=== PATIENT | female | born 1995 | race Caucasian/White ===

== ENCOUNTER → 2017-12-30 | Outpatient (CLI) | payer BC, OTHER | LOC: GMAM 16:49 | PROVIDERS: ATTEND Family Medicine | DX: M25.50 Pain in unspecified joint (principal); R53.83 Other fatigue; R23.3 Spontaneous ecchymoses ==

== ENCOUNTER → 2018-01-19 | Outpatient (CLI) | payer BC | LOC: GMAM 17:04 | PROVIDERS: ATTEND Family Medicine | DX: R31.21 Asymptomatic microscopic hematuria (principal); Z83.49 Family history of other endocrine, nutritional and metabolic diseases ==

== ENCOUNTER → 2018-03-02 | Outpatient (CLI) | payer BC | LOC: GMAM 15:14 | PROVIDERS: ATTEND Family Medicine | DX: E34.9 Endocrine disorder, unspecified (principal) ==

== ENCOUNTER 2018-03-25 05:51 | Day surgery (SDC) | payer BC ==
[2018-03-25] MEDS ORDERED: SODIUM CHL 0.9% 100ML MINI-BAG 100 ML IVPB ONE (07:35)
[2018-03-25] MEDS ORDERED: LACTATED RINGERS 1,000 ML ONE (07:35)
[2018-03-25] MEDS ORDERED: ceFAZolin SODIUM 1 GM VIAL ONE (07:36)
[2018-03-25] MEDS ORDERED: LACTATED RINGERS 1,000 ML BAG IV ONE (09:25)
[2018-03-25] MEDS ORDERED: LIDOCAINE 1% 10 ML VIAL INJ ONE (10:00)
[2018-03-25] MEDS ORDERED: PROPOFOL 200 MG/20 ML VIAL IV ONE (10:00)
[2018-03-25] MEDS ORDERED: DEXAMETHASONE INJ 10 MG/ML VIAL IV ONE (10:00)
[2018-03-25] MEDS ORDERED: LIDOCAINE 1% 50 ML VIAL INJ ONE (10:20)
[2018-03-25] MEDS ORDERED: SODIUM BICARBONATE VIAL 50 MEQ/50 ML VIAL ONE (10:20)
[2018-03-25] MEDS ORDERED: SODIUM CHLORIDE 0.9% 50 ML VIAL ONE (10:21)
[2018-03-25] MEDS ORDERED: fentaNYL CITRATE INJ 50 MCG/ML AMP ONE (10:21)
[2018-03-25] MEDS ORDERED: HEPARIN SODIUM 100 U/ML 5 ML SYG IV ONE (10:21)
[2018-03-25] MEDS ORDERED: MIDAZOLAM INJ 2 MG/2 ML VIAL ONE (10:21)
[2018-03-25] MEDS ORDERED: ELECTROLYTE-A 1,000 ML IVS ONE (10:53)
--- NOTE | 2018-03-25 13:10 | OP ---
DATE OF PROCEDURE: 03/25/18 PREOPERATIVE DIAGNOSIS: 1. Poor peripheral vascular access with postural orthostatic tachycardia syndrome (POTS). POSTOPERATIVE DIAGNOSIS: 1. Poor peripheral vascular access with postural orthostatic tachycardia syndrome (POTS). PROCEDURE: 1. Insertion of right subclavian venous access port. SURGEON: Jalen Balderas MD WAREHOUSER: None. ANESTHESIA: Local anesthesia with 1% lidocaine with bicarb and IV sedation by Anesthesia. INDICATION: The patient is a 23-year-old female who has lost approximately 30 pounds and requires weekly IV rehydration and replenishment of her electrolytes. She has relatively poor peripheral vascular access after the many sticks. She is brought to the Surgical Suite today for insertion of right subclavian venous access port under local anesthesia with IV sedation using fluoroscopy after the risks, benefits and alternatives to the procedure were discussed and accepted. FINDINGS: The subclavian vein was accessed with a single stick. However, it took four different attempts to get the guidewire to go down into the superior vena cava instead of crossing into the left subclavian vein. The final fluoroscopy showed the catheter in good position. PROCEDURE: After the patient was brought to the Surgical Suite and placed in supine position, she was prepped and draped in the usual sterile manner. After IV sedation was performed and a surgical time-out was taken, a 22-gauge needle was used to infiltrate the skin in the infraclavicular area on the right. It was advanced under the clavicle and venous blood was easily accessed. The 22- gauge needle was removed and an 18-gauge thin wall needle was introduced in the same direction. Again, blood was easily aspirated. The syringe was removed and the guidewire was easily passed to approximately 30 cm. A towel was placed over the field and fluoroscopy was used to identify cross into the left subclavian vein. It was backed up under fluoroscopic evaluation. We were unable to get it to pass posteriorly into the superior vena cava. Eventually, it was removed. We re-stuck her and finally on the fourth stick, each one passing the wire easily, we finally got the wire to pass inferiorly. When this was done, a stab wound was made over the guidewire and local infiltration of anesthesia was obtained and a port pocket was formed, first with a sharp knife after local anesthesia and then electrocautery and blunt dissection. At this point, the catheter was tunneled from the port pocket to the insertion site. The port was introduced into the port pocket, sutured in place with two 3-0 Prolene simple sutures. When this was done, the subcutaneous tissue in the port pocket was closed and reapproximated with interrupted 3-0 Vicryl sutures. When this was done, the catheter was measured and cut appropriately. The dilator introducer was then introduced without difficulty. The dilator and guidewire were removed. The catheter which had been cleaned with heparinized saline was then introduced without difficulty. The introducer was removed. Pressure was held over the insertion site and the port was accessed with a Mcfadden needle. It aspirated easily. It was then flushed with heparinized saline followed by heplock and de-accessed. At this point, another sterile towel was placed over the field and the fluoroscopy unit was used to identify the catheter in good position. At this point, the incisions were closed with interrupted 4-0 Vicryl subcuticular sutures, benzoin and Steri-Strips. Sterile pressure dressing was applied. The patient was taken to the Recovery Room in stable condition. Estimated blood loss was approximately 25 mL. All sponge, needle and instrument counts were correct. #[id number] [facility]
--- NOTE | 2018-03-25 13:35 | RAD ---
EXAM DESCRIPTION: Chest,1 View CLINICAL HISTORY: post op port COMPARISON: August 11, 2012 IMPRESSION: Single AP portable upright view of the chest shows cardiac silhouette and pulmonary vasculature to be within normal limits. Lungs are normally aerated and clear. No obvious pleural effusion or pneumothorax is seen. Interval placement of right subclavian Mediport with tip in the distal superior vena cava and no evidence of pneumothorax. Electronically signed by: Clint Smith MD 03/25/2018 1:34 PM CDT
[2018-03-25 14:09] VITALS: BP 105/72; TEMP 97.2; O2SAT 97
== END 2018-03-25 13:15 | disposition home or self-care (01) ==
LOC: AMB 05:51
PROVIDERS: ATTEND Surgery
DX: R00.0 Tachycardia, unspecified (principal); D64.9 Anemia, unspecified; G47.419 Narcolepsy without cataplexy; K21.9 Gastro-esophageal reflux disease without esophagitis; Z79.899 Other long term (current) drug therapy
CPT/HCPCS: 00532; 36415; 36561; 71045; 76000; 81001; 81025; 85025; A4216; C1788; J0690; J1100; J1642; J2250; J3010; J3490; J7050; J7120

== ENCOUNTER → 2018-04-19 | Outpatient (CLI) | payer BC | LOC: GMAM 16:51 | PROVIDERS: ATTEND Family Medicine | DX: G47.419 Narcolepsy without cataplexy (principal); R53.82 Chronic fatigue, unspecified ==

== ENCOUNTER → 2018-06-27 | Outpatient (CLI) | payer BC | LOC: GMAM 10:34 | PROVIDERS: ATTEND Family Medicine | DX: R50.9 Fever, unspecified (principal) ==

== ENCOUNTER → 2018-08-17 | Outpatient (CLI) | payer BC ==
--- NOTE | 2018-08-18 09:54 | MRI ---
EXAM DESCRIPTION: Cervical Spine: MRI. CLINICAL HISTORY: 23 years Female CERVICAL SPINAL STENOSIS COMPARISON: Radiographs of the right shoulder , 08/15/2018. MRI scan of the thoracic spine 02/02/2018. TECHNIQUE: Multiplanar, high-field MRI, multiple sequences, non-contrast Cervical spine. FINDINGS: C4-5: Small uncinate spur on the left only. Normal signal in the disc with disc space preserved. Canal and neural foramina are patent. Facet joints negative. C5-6: Bilateral small uncinate spurs. Minimal left neural foraminal narrowing. Normal signal in the disc and disc space preserved. Canal and right neural foraminal are patent. Facet joints negative. C6-7: Posterior flavum ligaments with minimal hypertrophy. Normal signal in the disc with disc space preserved. Facet joints are unremarkable. Canal and neural foramina are patent. Normal signal in the remaining discs with no bulging. Disc spaces preserved. Canal and neural foramina are patent. Facet joints are unremarkable Spinal alignment anatomic. No cord compression or cord edema. Atlantoaxial joint shows minimal hypertrophy of the transverse ligament anterior to the ventral cord. Base of the cerebellar tonsils is at the level of the foramen magnum. Paravertebral soft tissues negative.. Vertebral bodies are not compressed at any level. Normal marrow signal in the remaining vertebral bodies and the posterior elements. IMPRESSION: 1. Minimal findings as described at 3 levels of the cervical spine but no significant disc bulging or desiccation; no canal or neural foraminal stenosis. 2. No acute bony abnormalities. No cord compression or edema. Electronically signed by: Danny Guy MD 08/18/2018 9:51 AM MEDICAL OFFICE RECEPTIONIST
== END ==
LOC: MRI 10:09
PROVIDERS: ATTEND Family Medicine
DX: M25.511 Pain in right shoulder (principal); M48.02 Spinal stenosis, cervical region

== ENCOUNTER 2018-10-06 19:21 | Emergency (ER) | payer BC ==
--- NOTE | 2018-10-06 20:43 | CT ---
PROCEDURE: CT Head CLINICAL HISTORY: 23 years Female headache TECHNIQUE: Contiguous axial CT images obtained through the brain without IV contrast. This CT exam was performed according to our departmental dose-optimization program, which includes one or more of the following dose reduction techniques: automated exposure control, adjustment of the mA and/or kV according to patient size, and/or use of iterative reconstruction technique. COMPARISON: No prior exams provided for comparison. FINDINGS: There is no intracranial hemorrhage, extraaxial collection, or acute transcortical infarction. The ventricles are normal in size and contour without mass-effect or midline shift. Osseous structures are normal. The paranasal sinuses and mastoid air cells are clear. IMPRESSION: No acute intracranial abnormalities. Electronically signed by: Ludivina Santana MD 10/06/2018 8:40 PM CDT
[2018-10-06 21:43] VITALS: O2SAT 99
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
[2018-10-06 22:50] VITALS: TEMP 98.8
[2018-10-06] MEDS ORDERED: ONDANSETRON INJ 4 MG/2 ML VIAL IV ONE (23:28)
[2018-10-06] MEDS ORDERED: MORPHINE SULFATE INJ 10 MG/ML VIAL IV ONE (23:28)
[2018-10-07] MEDS ORDERED: MORPHINE SULFATE INJ 10 MG/ML VIAL IV ONE (00:01)
[2018-10-07] MEDS ORDERED: HYDROCOD/APAP 5/325 (ER DISP) #3 TAB PO ONE (00:01)
[2018-10-07] MEDS ORDERED: IBUPROFEN 200 MG TAB PO ONE (00:01)
[2018-10-07 00:55] VITALS: BP 108/72
== END 2018-10-07 00:15 | disposition home or self-care (01) ==
LOC: ER 19:21
DX: G44.89 Other headache syndrome (principal); M43.6 Torticollis; R09.81 Nasal congestion; Z87.891 Personal history of nicotine dependence; Z79.899 Other long term (current) drug therapy
CPT/HCPCS: 36415; 70450; 80053; 82945; 84157; 85025; 85379; 87070; 89051; J2270

== ENCOUNTER → 2018-10-24 | Outpatient (CLI) | payer BC ==
--- NOTE | 2018-10-24 19:40 | US ---
EXAM: US Duplex Right Lower Extremity Veins CLINICAL HISTORY: 23 years old and is Female; RT CALF PAIN M79.661 TECHNIQUE: Real-time duplex ultrasound scan of the right lower extremity veins integrating B-mode two-dimensional vascular structure, Doppler spectral analysis, color flow Doppler imaging and compression. COMPARISON: No relevant prior studies available. FINDINGS: Limitations: None. Deep veins: Unremarkable. No DVT in the visualized common femoral, femoral, proximal deep femoral or popliteal veins. The veins demonstrate normal color flow, are normally compressible, with normal phasic flow and/or augmentation response. Superficial veins: Unremarkable. No thrombus in the visualized great saphenous vein. Soft tissues: No abnormality noted. No popliteal cyst. IMPRESSION: No deep venous stenosis of the right lower extremity. Electronically signed by: Ana Lancaster MD 10/24/2018 7:38 PM CDT
== END ==
LOC: US 18:57
PROVIDERS: ATTEND Nurse Practitioner Family
DX: M79.661 Pain in right lower leg (principal)

== ENCOUNTER 2018-10-26 08:41 | Emergency (ER) | payer BC, OTHER ==
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
[2018-10-26] MEDS: IBUPROFEN 200 MG TAB PO ONE (09:05)
[2018-10-26 09:47] VITALS: BP 104/73; TEMP 98.5; O2SAT 100
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
== END 2018-10-26 09:48 | disposition home or self-care (01) ==
LOC: ER 08:41
DX: S16.1XXA Strain of muscle, fascia and tendon at neck level, initial encounter (principal); M25.561 Pain in right knee; Z87.891 Personal history of nicotine dependence; Z79.899 Other long term (current) drug therapy; V49.88XA Car occupant (driver) (passenger) injured in other specified transport accidents, initial encounter; Y92.410 Unspecified street and highway as the place of occurrence of the external cause
CPT/HCPCS: 72050; 73560; L0120

== ENCOUNTER 2019-01-04 16:04 | Emergency (ER) | payer BC ==
[2019-01-04] MEDS ORDERED: POTASSIUM CHLORIDE ELIXIR 20 MEQ/15 ML UD PO ONE (17:21)
--- NOTE | 2019-01-04 18:25 | ED.PDOC ---
History of Present Illness - General Chief Complaint: General Stated Complaint: numbness all over Time Seen by Provider: 01/04/19 16:27 Source: patient Exam Limitations: no limitations - History of Present Illness Initial Comments: the patient is a 44-year-old female presenting to the emergency room secondary to increased frequency of herseizure activity. 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 She had 3 yesterday. She is currently on a medication regimen increased with her neurologist from [facility]. She is alert and oriented. She is pleasant and cooperative. No evidence of any obvious injury. No fever. She does have a history of mild hypokalemia. Timing/Duration: 24 hours Severity: mild Improving Factors: nothing Worsening Factors: nothing Associated Symptoms: denies symptoms Allergies/Adverse Reactions: Allergies NO KNOWN ALLERGY Allergy (Verified 10/26/18 08:57) Home Medications: Ambulatory Orders Adderall Xr 30 mg 30 mg PO DAILY 03/24/18 Amitriptyline HCl [Amitriptyline Hydrochlori] 50 mg PO BEDTIME 03/24/18 Estazolam 2 mg PO BEDTIME 03/24/18 Gabapentin 300 mg PO TID 01/04/19 Lamotrigine [Lamictal] 50 mg PO DAILY 01/04/19 Levetiracetam [Keppra] 500 mg PO BID 01/04/19 Review of Systems - Review of Systems Constitutional: States: no symptoms reported EENTM: States: no symptoms reported Respiratory: States: no symptoms reported Cardiology: States: no symptoms reported Gastrointestinal/Abdominal: States: no symptoms reported Genitourinary: States: no symptoms reported Musculoskeletal: States: no symptoms reported Skin: States: no symptoms reported Neurological: States: see HPI Endocrine: States: no symptoms reported All other Systems: No Change from Baseline Past Medical History (General) - Patient Medical History Hx Seizures: Yes Hx Stroke: No Hx Dementia: No Hx Asthma: No Hx of COPD: No Hx Cardiac Disorders: No Hx Congestive Heart Failure: No Hx Pacemaker: No Hx Hypertension: No Hx Thyroid Disease: No Hx Diabetes: No Hx Gastroesophageal Reflux: No Hx Renal Disease: No Hx Cancer: No Hx of HIV: No Hx Hepatitis C: No Hx MRSA: No Surgical History: appendectomy, cholecystectomy, Hysterectomy - Vaccination History Hx Tetanus, Diphtheria Vaccination: Yes Hx Influenza Vaccination: Yes Hx Pneumococcal Vaccination: No - Social History Hx Tobacco Use: Yes Hx Chewing Tobacco Use: No Hx Alcohol Use: Yes Hx Substance Use: No Hx Substance Use Treatment: No Hx Depression: No Hx Physical Abuse: No Hx Emotional Abuse: No Hx Suspected Abuse: No - Female History Hx Last Menstrual Period: 09/29/13 Patient : No Expected Date of Delivery:: 07/06/14 Hx Gestational Age: 19 Family Medical History - Family History Mother Family History: Unknown Age (years): 51 Hx Family Hypertension: Yes - gf Hx Family Diabetes: Yes Hx Family Cancer: Yes Father Living Status: Still Living Hx Cardiac Disease: Yes - father had [place] Hx Family Diabetes: Yes Hx Family Cancer: Yes Physical Exam - Physical Exam General Appearance: Alert, Comfortable, No apparent distress Eye Exam: bilateral normal Ears, Nose, Throat: hearing grossly normal, normal ENT inspection Neck: full range of motion, supple Respiratory: lungs clear, normal breath sounds, no respiratory distress, no accessory muscle use Cardiovascular/Chest: normal peripheral pulses, no edema, other - tachycardic but regular Peripheral Pulses: radial,right: 2+, radial,left: 2+, dorsalis pedis,right: 2+, dorsalis pedis,left: 2+ Gastrointestinal/Abdominal: non tender, soft Rectal Exam: deferred Back Exam: no CVA tenderness, no vertebral tenderness Extremity: non-tender, normal inspection, no pedal edema, no calf tenderness, normal capillary refill Neurologic: radio time buyer II-XII nml as tested, alert, normal mood/affect, oriented x 3 Skin Exam: normal color Comments: Vital Signs - 24 hr 01/04/19 01/04/19 16:18 17:50 Temperature 98.1 F Pulse Rate [ 113 H 97 H Right Brachial] Respiratory 20 20 Rate Blood Pressure 98/64 98/61 [Right Arm] O2 Sat by Pulse 99 99 Oximetry Laboratory Tests 01/04/19 01/04/19 01/04/19 16:40 16:40 16:40 WBC 4.2 L RBC 4.22 Hgb 12.6 Hct 37.4 MCV 88.6 MCH 29.9 MCHC 33.7 RDW 12.2 Plt Count 177 MPV 9.5 Absolute Neuts (auto) 1.90 Absolute Lymphs (auto) 1.90 Absolute Monos (auto) 0.40 Absolute Eos (auto) 0.00 Absolute Basos (auto) 0.00 Neutrophils % 44.7 Lymphocytes % 44.1 Monocytes % 9.7 H Eosinophils % 0.7 L Basophils % 0.8 PT 10.1 INR 1.01 PTT (SP) 27.2 D-Dimer, Quantitative 0.46 Sodium 138 Potassium 3.5 L Chloride 107 Carbon Dioxide 21 Anion Gap 13.5 BUN 12 Creatinine 0.58 L BUN/Creatinine Ratio 20.7 H Random Glucose 88 Serum Osmolality 274.9 L Calcium 9.4 Magnesium 1.9 Total Bilirubin 0.9 AST 17 ALT 13 Alkaline Phosphatase 62 Creatine Kinase 55 CK-MB (CK-2) 0.6 Troponin I < 0.02 B-Natriuretic Peptide < 5.0 Serum Total Protein 7.3 Albumin 4.2 Globulin 3.1 Albumin/Globulin Ratio 1.4 TSH 0.79 Urine Color Urine Appearance Urine pH Ur Specific [place] Urine Protein Urine Glucose (UA) Urine Ketones Urine Blood Urine Nitrite Urine Bilirubin Urine Urobilinogen Ur Leukocyte Esterase Urine RBC Urine WBC Ur Epithelial Cells Urine Bacteria Urine Mucus Urine HCG, Qual 01/04/19 01/04/19 17:40 17:40 WBC RBC Hgb Hct MCV MCH MCHC RDW Plt Count MPV Absolute Neuts (auto) Absolute Lymphs (auto) Absolute Monos (auto) Absolute Eos (auto) Absolute Basos (auto) Neutrophils % Lymphocytes % Monocytes % Eosinophils % Basophils % PT INR PTT (SP) D-Dimer, Quantitative Sodium Potassium Chloride Carbon Dioxide Anion Gap BUN Creatinine BUN/Creatinine Ratio Random Glucose Serum Osmolality Calcium Magnesium Total Bilirubin AST ALT Alkaline Phosphatase Creatine Kinase CK-MB (CK-2) Troponin I B-Natriuretic Peptide Serum Total Protein Albumin Globulin Albumin/Globulin Ratio TSH Urine Color Yellow Urine Appearance Sl cloudy Urine pH 5.5 Ur Specific [place] 1.025 Urine Protein Negative Urine Glucose (UA) Negative Urine Ketones Negative Urine Blood Trace-intact H Urine Nitrite Negative Urine Bilirubin Negative Urine Urobilinogen 0.2 Ur Leukocyte Esterase Negative Urine RBC 0-1 Urine WBC 1-3 Ur Epithelial Cells 3-5 Urine Bacteria Rare Urine Mucus Small Urine HCG, Qual Negative Progress - Progress Progress: 01/04/19 18:25 the patient is a 24-year-old female presenting to the emergency room secondary to an increase in frequency of her seizure activity. She is apparently a known epileptic. She is currently being managed by neurologist in the [facility]. Laboratory work here shows very mild hypokalemia only. She has received a dose of potassium here. For tonight she will receive a dose of oral clonazepam and she is to continue her routine medication regimen for epilepsy. Tomorrow morning she is to call her neurologist for advice on any medication changes. Obviously she is not to drive swim fly bungee jump or parachute as her epilepsy is not controlled at this point. ER warnings were given for acute worsening. 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 Copy, Patient Portal Self Enrollment Instructions: Seizures, Adult (DC) Diet: regular diet Activity: increase activity as tolerated Referrals: Luis Alberto Palmer MD [Primary Care Provider] - 1-2 Weeks Home Medications: Ambulatory Orders Adderall Xr 30 mg 30 mg PO DAILY 03/24/18 Amitriptyline HCl [Amitriptyline Hydrochlori] 50 mg PO BEDTIME 03/24/18 Estazolam 2 mg PO BEDTIME 03/24/18 Gabapentin 300 mg PO TID 01/04/19 Lamotrigine [Lamictal] 50 mg PO DAILY 01/04/19 Levetiracetam [Keppra] 500 mg PO BID 01/04/19 Additional Instructions: the patient is a 24-year-old female presenting to the emergency room secondary to an increase in frequency of her seizure activity. She is apparently a known epileptic. She is currently being managed by neurologist in the [facility]. Laboratory work here shows very mild hypokalemia only. She has received a dose of potassium here. For tonight she will receive a dose of oral clonazepam and she is to continue her routine medication regimen for epilepsy. Tomorrow morning she is to call her neurologist for advice on any medication changes. Obviously she is not to drive swim fly bungee jump or parachute as her epilepsy is not controlled at this point. ER warnings were given for acute worsening.
[2019-01-04 18:37] VITALS: BP 101/80; TEMP 99.1; O2SAT 98
== END 2019-01-04 18:37 | disposition home or self-care (01) ==
LOC: ER 16:04
DX: G40.419 Other generalized epilepsy and epileptic syndromes, intractable, without status epilepticus (principal); E87.6 Hypokalemia; R20.0 Anesthesia of skin; Z79.899 Other long term (current) drug therapy; Z87.891 Personal history of nicotine dependence

== ENCOUNTER → 2019-01-11 | Outpatient (CLI) | payer BC ==
--- NOTE | 2019-01-12 15:18 | US ---
EXAM DESCRIPTION: Breast,Right: Ultrasound CLINICAL HISTORY: 24 yearsFemaleUnspecified lump in the right breast, upper inner quadrant . Small nodule or cyst on the upper outer quadrant of the right nipple has enlarged in the past 2 months. Palpable. No personal history of breast cancer. Remote family history of ovarian cancer. Childbirth. Postmenopausal x2 years. No HRT. Bilateral breast augmentation for years. Lifetime risk of developing breast cancer (Tyrer-Cuzick model)(%): Cannot be calculated due to patient age under 35 years. COMPARISON: None. TECHNIQUE: Transcutaneous scanning of the right breast utilizing cordero-scale and Doppler modes. Scanning performed by the station supervisor ; observation by Dr. Guy. FINDINGS: Ultrasound: Right breast is almost uniformly fibroglandular in density. Capsule of implant appears intact where seen. Lesion not well seen with conventional skin contact. Standoff pad placed overlying the right nipple where lesion is noted with a clear to whitish color on the margin of the nipple. The lesion measures approximately 2.7 x 2.5 mm with minimal internal echoes but definite posterior acoustic shadowing. The skin is elevated over the lesion. No deep tracts are seen. Not vascular by Doppler. Probably a subcutaneous cyst could be related to a sweat gland or a duct.. IMPRESSION: BI-RADS CATEGORY: 3 - PROBABLY BENIGN. Management: Short interval (6-month) follow-up targeted right breast ultrasound. Alternatively, consider surgical and/or dermatology evaluation. The FINDINGS and the FOLLOW-UP plan were reviewed in person with the patient after the examination. Written communication explaining the IMPRESSION and FOLLOW-UP will be mailed to the patient and referring care provider. Electronically signed by: Danny Guy MD 01/12/2019 3:16 PM CDT
== END ==
LOC: US 13:04
PROVIDERS: ATTEND Nurse Practitioner Family
DX: N63.12 Unspecified lump in the right breast, upper inner quadrant (principal)

== ENCOUNTER 2019-02-06 15:29 | Emergency (ER) | payer BC ==
[2019-02-06] MEDS ORDERED: ACETAMINOPHEN 325 MG TAB PO ONE (15:56)
[2019-02-06 16:15] VITALS: TEMP 100.2
[2019-02-06] MEDS ORDERED: cefTRIAXone SODIUM 1 GM VIAL IM ONE (19:30)
[2019-02-06] MEDS ORDERED: CIPROFLOXACIN 500 MG TAB PO ONE (19:30)
--- NOTE | 2019-02-06 19:39 | ED.PDOC ---
History of Present Illness - General Chief Complaint: Problem Stated Complaint: Pressure/tenderness lower abdomen, cystocele hx Time Seen by Provider: 02/06/19 15:56 Source: patient Exam Limitations: no limitations - History of Present Illness Initial Comments: The patient is a 24-year-old female presenting to the emergency room secondary to a feeling of fullness and discomfort in her lower abdomen. 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 postvoid residua l here is [id number] cc. No evidence of renal failure. The patient does have lower abdominal tenderness to palpation. Pelvic exam shows cervical cuff motion tenderness but no significant discharge. She has had a hysterectomy in the past. She does have a low-grade fever of 100.2. No bowel symptoms. Timing/Duration: 24 hours Severity: mild Improving Factors: nothing Worsening Factors: nothing Associated Symptoms: fever/chills, malaise Allergies/Adverse Reactions: Allergies NO KNOWN ALLERGY Allergy (Verified 02/06/19 15:56) Home Medications: Ambulatory Orders Adderall Xr 30 mg 30 mg PO DAILY 03/24/18 Amitriptyline HCl [Amitriptyline Hydrochlori] 50 mg PO BEDTIME 03/24/18 Estazolam 2 mg PO BEDTIME 03/24/18 Gabapentin 300 mg PO TID 01/04/19 Lamotrigine [Lamictal] 50 mg PO DAILY 01/04/19 Levetiracetam [Keppra] 500 mg PO BID 01/04/19 Ciprofloxacin [Cipro] 500 mg PO BID #10 tab 02/06/19 Review of Systems - Review of Systems Constitutional: States: fever EENTM: States: no symptoms reported Respiratory: States: no symptoms reported Cardiology: States: no symptoms reported Gastrointestinal/Abdominal: States: no symptoms reported, abdominal pain Genitourinary: States: see HPI Musculoskeletal: States: no symptoms reported - chronic issues related to long- standing illness Skin: States: no symptoms reported Neurological: States: anxiety Endocrine: States: no symptoms reported All other Systems: No Change from Baseline Past Medical History (General) - Patient Medical History Hx Seizures: Yes - Epilepsy Hx Stroke: No Hx Dementia: No Hx Asthma: No Hx of COPD: No Hx Cardiac Disorders: No Hx Congestive Heart Failure: No Hx Pacemaker: No Hx Hypertension: No Hx Thyroid Disease: No Hx Diabetes: No Hx Gastroesophageal Reflux: No Hx Renal Disease: No Hx Cancer: No Hx of HIV: No Hx Hepatitis C: No Hx MRSA: No Surgical History: appendectomy, cholecystectomy, Hysterectomy, other - Vaccination History Hx Tetanus, Diphtheria Vaccination: Yes Hx Influenza Vaccination: Yes Hx Pneumococcal Vaccination: No Immunizations Up to Date: Yes - Social History Hx Tobacco Use: Yes Hx Chewing Tobacco Use: No Hx Alcohol Use: No Hx Substance Use: No Hx Substance Use Treatment: No Hx Depression: No Hx Physical Abuse: No Hx Emotional Abuse: No Hx Suspected Abuse: No - Female History Patient is a Female of Child Bearing Age (10 -59 yrs old): Yes Hx Last Menstrual Period: 09/29/13 Patient : No - Hyst Expected Date of Delivery:: 07/06/14 Hx Gestational Age: 20 Family Medical History - Family History Mother Family History: Unknown Age (years): 51 Hx Family Hypertension: Yes - gf Hx Family Diabetes: Yes Hx Family Cancer: Yes Father Living Status: Still Living Hx Cardiac Disease: Yes - father had [place] Hx Family Diabetes: Yes Hx Family Cancer: Yes Physical Exam - Physical Exam General Appearance: Alert, Comfortable, No apparent distress Eye Exam: bilateral normal Ears, Nose, Throat: hearing grossly normal, normal ENT inspection Neck: full range of motion, supple Respiratory: lungs clear, normal breath sounds, no respiratory distress, no accessory muscle use Cardiovascular/Chest: normal peripheral pulses, regular rate, rhythm, no edema Peripheral Pulses: radial,right: 2+, radial,left: 2+ Gastrointestinal/Abdominal: soft, other - no definite palpable mass. No rebound or peritoneal signs. Lower abdominal discomfort palpation. Rectal Exam: other - pelvic exam shows minimal discharge. There is mild cervical cuff tenderness to palpationand there does appear to be a fair amount of palpable scarring at the end of the cuff on bimanual exam. It is tender. Back Exam: no CVA tenderness, no vertebral tenderness Extremity: normal range of motion, non-tender, normal inspection, no pedal edema, normal capillary refill Neurologic: director of research and development II-XII nml as tested, alert, normal mood/affect, oriented x 3 Skin Exam: normal color Comments: Vital Signs - 24 hr 02/06/19 02/06/19 02/06/19 15:41 15:56 16:29 Temperature 100.2 F H Pulse Rate [L 133 H 133 H 82 finger] Respiratory 18 20 Rate Blood Pressure 126/81 112/80 [L brachial] O2 Sat by Pulse 100 98 Oximetry 02/06/19 02/06/19 02/06/19 17:00 18:00 19:00 Temperature Pulse Rate [L 106 H 108 H 101 H finger] Respiratory 20 18 20 Rate Blood Pressure 116/90 107/88 115/78 [L brachial] O2 Sat by Pulse 100 100 99 Oximetry Progress - Progress Progress: 02/06/19 19:41 the patient is a 24-year-old female presenting with lower abdominal pain and a low-grade fever. She also has some mild urinary retention but does not appear to be causing any renal failure. In and out catheterization was done for patient comfort. The patient was placed on ciprofloxacin for the next 5 days to help get rid of any potential bacterial pathology that may be causing her abdominal pain and low-grade fever. No obvious source has been found. Keep follow-up with her specialist for cystocele repair. In out catheterizations as necessary. ER warnings were given. - Results/Orders Results/Orders: 02/06/19 16:44 BLOOD CULTURE Stat 02/06/19 17:07 GC CHLAMYDIA RNA,TMA Stat Laboratory Results - last 24 hr 02/06/19 02/06/19 02/06/19 16:00 16:00 16:44 WBC 4.3 L RBC 4.34 Hgb 13.3 Hct 38.8 MCV 89.3 MCH 30.7 MCHC 34.4 RDW 12.3 Plt Count 172 MPV 9.9 Absolute Neuts (auto) 2.00 Absolute Lymphs (auto) 1.80 Absolute Monos (auto) 0.40 Absolute Eos (auto) 0.10 Absolute Basos (auto) 0.00 Neutrophils % 47.1 Lymphocytes % 41.1 Monocytes % 9.8 H Eosinophils % 1.3 Basophils % 0.7 Sodium Potassium Chloride Carbon Dioxide Anion Gap BUN Creatinine BUN/Creatinine Ratio Random Glucose Serum Osmolality Calcium Total Bilirubin AST ALT Alkaline Phosphatase Serum Total Protein Albumin Globulin Albumin/Globulin Ratio Amylase Lipase Urine Color Yellow Urine Appearance Clear Urine pH 7.0 Ur Specific [place] 1.025 Urine Protein Negative Urine Glucose (UA) Negative Urine Ketones Negative Urine Blood Trace-intact H Urine Nitrite Negative Urine Bilirubin Negative Urine Urobilinogen 0.2 Ur Leukocyte Esterase Negative Urine RBC 1-3 Urine WBC 1-3 Ur Epithelial Cells 1-3 Urine Bacteria Rare Urine HCG, Qual Negative 02/06/19 16:44 WBC RBC Hgb Hct MCV MCH MCHC RDW Plt Count MPV Absolute Neuts (auto) Absolute Lymphs (auto) Absolute Monos (auto) Absolute Eos (auto) Absolute Basos (auto) Neutrophils % Lymphocytes % Monocytes % Eosinophils % Basophils % Sodium 136 Potassium 3.3 L Chloride 103 Carbon Dioxide 25 Anion Gap 11.3 L BUN 10 Creatinine 0.59 L BUN/Creatinine Ratio 16.9 Random Glucose 81 Serum Osmolality 270.0 L Calcium 10.1 Total Bilirubin 0.4 AST 50 H ALT 49 Alkaline Phosphatase 77 Serum Total Protein 7.9 Albumin 4.5 Globulin 3.4 Albumin/Globulin Ratio 1.3 Amylase 82 Lipase 34 Urine Color Urine Appearance Urine pH Ur Specific [place] Urine Protein Urine Glucose (UA) Urine Ketones Urine Blood Urine Nitrite Urine Bilirubin Urine Urobilinogen Ur Leukocyte Esterase Urine RBC Urine WBC Ur Epithelial Cells Urine Bacteria Urine HCG, Qual wet prep is negative. GC chlamydia is pending. Departure - Departure Clinical Impression: Urinary retention with incomplete bladder emptying, Pelvic pain Disposition: Discharge to Home or Self Care Condition: Fair Departure Forms: ED Discharge - Pt. Copy, Patient Portal Self Enrollment Instructions: Urinary Retention (DC), Cystocele and Rectocele (DC) Diet: resume usual diet Activity: increase activity as tolerated Referrals: Luis Alberto Palmer MD [Primary Care Provider] - 1-2 Weeks Prescriptions: Ciprofloxacin [Cipro] 500 mg PO BID #10 tab Home Medications: Ambulatory Orders Adderall Xr 30 mg 30 mg PO DAILY 03/24/18 Amitriptyline HCl [Amitriptyline Hydrochlori] 50 mg PO BEDTIME 03/24/18 Estazolam 2 mg PO BEDTIME 03/24/18 Gabapentin 300 mg PO TID 01/04/19 Lamotrigine [Lamictal] 50 mg PO DAILY 01/04/19 Levetiracetam [Keppra] 500 mg PO BID 01/04/19 Ciprofloxacin [Cipro] 500 mg PO BID #10 tab 02/06/19 Additional Instructions: the patient is a 24-year-old female presenting with lower abdominal pain and a low-grade fever. She also has some mild urinary retention but does not appear to be causing any renal failure. In and out catheterization was done for patient comfort. The patient was placed on ciprofloxacin for the next 5 days to help get rid of any potential bacterial pathology that may be causing her abdominal pain and low-grade fever. No obvious source has been found. Keep follow-up with her specialist for cystocele repair. In out catheterizations as necessary. ER warnings were given.
[2019-02-06] MEDS ORDERED: LIDOCAINE 1% 2 ML VIAL INJ ONE (19:51)
[2019-02-06 20:09] VITALS: O2SAT 100
[2019-02-06 20:55] VITALS: BP 108/80
== END 2019-02-06 21:08 | disposition home or self-care (01) ==
LOC: ER 15:29
DX: R33.9 Retention of urine, unspecified (principal); R10.2 Pelvic and perineal pain; R50.9 Fever, unspecified; G40.909 Epilepsy, unspecified, not intractable, without status epilepticus; Q79.6 Ehlers-Danlos syndromes; Z90.49 Acquired absence of other specified parts of digestive tract; Z87.891 Personal history of nicotine dependence; Z79.899 Other long term (current) drug therapy
CPT/HCPCS: 80053; 81001; 81025; 82150; 83690; 85025; 87040; 87210; 87491; 87591; J0696

== ENCOUNTER 2019-06-22 16:47 | Emergency (ER) | payer OTHER ==
[2019-06-22] MEDS ORDERED: IBUPROFEN 200 MG TAB ONE (17:06)
--- NOTE | 2019-06-22 17:06 | ED.PDOC ---
History of Present Illness - General Chief Complaint: Lower Extremity Injury Stated Complaint: left ankle pain Time Seen by Provider: 06/22/19 16:59 Source: patient, RN notes reviewed, Vital Signs reviewed - History of Present Illness Initial Comments: Patient presents for evaluation of left ankle pain after twisting it earlier this afternoon. She states that she was stepping down and the ankle turned inwards. She denies any other injuries. She denies previous injury to the ankle. States that the pain is localized to the ankle. Allergies/Adverse Reactions: Allergies NO KNOWN ALLERGY Allergy (Verified 02/06/19 15:56) Home Medications: Ambulatory Orders Adderall Xr 30 mg 30 mg PO DAILY 03/24/18 Amitriptyline HCl [Amitriptyline Hydrochlori] 50 mg PO BEDTIME 03/24/18 Estazolam 2 mg PO BEDTIME 03/24/18 Gabapentin 300 mg PO TID 01/04/19 Lamotrigine [Lamictal] 50 mg PO DAILY 01/04/19 Levetiracetam [Keppra] 500 mg PO BID 01/04/19 Ciprofloxacin [Cipro] 500 mg PO BID #10 tab 02/06/19 Acetaminophen W/ Codeine [Tylenol W/ CODEINE #3] 1 ea PO Q8HR PRN #10 06/22/19 Meloxicam [Mobic] 15 mg PO DAILY #15 tab 06/22/19 Review of Systems - Review of Systems Constitutional: Denies: chills, fever Gastrointestinal/Abdominal: Denies: vomiting Musculoskeletal: States: joint pain, joint swelling Neurological: Denies: numbness, weakness Past Medical History (General) - Patient Medical History Hx Seizures: Yes - Epilepsy Hx Stroke: No Hx Dementia: No Hx Asthma: No Hx of COPD: No Hx Cardiac Disorders: No Hx Congestive Heart Failure: No Hx Pacemaker: No Hx Hypertension: No Hx Thyroid Disease: No Hx Diabetes: No Hx Gastroesophageal Reflux: No Hx Renal Disease: No Hx Cancer: No Hx of HIV: No Hx Hepatitis C: No Hx MRSA: No - Vaccination History Hx Tetanus, Diphtheria Vaccination: Yes Hx Influenza Vaccination: Yes Hx Pneumococcal Vaccination: No - Social History Hx Tobacco Use: Yes Hx Chewing Tobacco Use: No Hx Alcohol Use: No Hx Substance Use: No Hx Substance Use Treatment: No Hx Depression: No Hx Physical Abuse: No Hx Emotional Abuse: No Hx Suspected Abuse: No - Female History Hx Last Menstrual Period: 09/29/13 Patient : No - Hyst Expected Date of Delivery:: 07/06/14 Hx Gestational Age: 19 Family Medical History - Family History Mother Family History: Unknown Age (years): 51 Hx Family Hypertension: Yes - gf Hx Family Diabetes: Yes Hx Family Cancer: Yes Father Living Status: Still Living Hx Cardiac Disease: Yes - father had [place] Hx Family Diabetes: Yes Hx Family Cancer: Yes Physical Exam - Physical Exam General Appearance: Alert, Other - Appears uncomfortable. Non-toxic. Neck: full range of motion, supple Cardiovascular/Respiratory: no JVD, normal breath sounds, no respiratory distress, tachycardia Thigh/Hip: normal inspection Leg: normal inspection Knee: normal inspection, other - No fibula or tibial tenderness proximally. Ankle: normal inspection, normal ROM, bone tenderness - TTP over lateral malleolus Foot: non-tender, no evidence of injury, normal ROM Neuro/Tendon: normal sensation, normal motor functions, normal tendon functions Mental Status: alert, oriented x 3 Skin: normal color, warm/dry Progress - Progress Progress: DDx: Fx, dislocation, sprain 06/22/19 17:07 XR and pain medication ordered. 06/22/19 17:42 XR concerning for distal fibula fx without dislocation. Will place in short leg splint. Give crutches. Plan to follow-up with Dr. Phelan for re-evaluation and imaging. Will discharge with Tylenol #3 and Mobic. - EKG/XRAY/CT XRAY: ankle - Distal left fibula fx without displacement. Departure - Departure Clinical Impression: Fx lateral malleolus-closed Qualifiers: Encounter type: initial encounter Fracture alignment: nondisplaced Laterality: left Qualified Code(s): S82.65XA - Nondisplaced fracture of lateral malleolus of left fibula, initial encounter for closed fracture Time of Disposition: 17:39 Disposition: Discharge to Home or Self Care Condition: Fair Departure Forms: ED Discharge - Pt. Copy, Patient Portal Self Enrollment Instructions: DI for Leg Pain, Fibula Fracture Referrals: Luis Alberto Palmer MD [Primary Care Provider] - 1-2 Weeks Jose G Phelan MD [Active Staff] - 1-5 Days Prescriptions: Acetaminophen W/ Codeine [Tylenol W/ CODEINE #3] 1 ea PO Q8HR PRN #10 PRN Reason: Pain Meloxicam [Mobic] 15 mg PO DAILY #15 tab Home Medications: Ambulatory Orders Adderall Xr 30 mg 30 mg PO DAILY 03/24/18 Amitriptyline HCl [Amitriptyline Hydrochlori] 50 mg PO BEDTIME 03/24/18 Estazolam 2 mg PO BEDTIME 03/24/18 Gabapentin 300 mg PO TID 01/04/19 Lamotrigine [Lamictal] 50 mg PO DAILY 01/04/19 Levetiracetam [Keppra] 500 mg PO BID 01/04/19 Ciprofloxacin [Cipro] 500 mg PO BID #10 tab 02/06/19 Acetaminophen W/ Codeine [Tylenol W/ CODEINE #3] 1 ea PO Q8HR PRN #10 06/22/19 Meloxicam [Mobic] 15 mg PO DAILY #15 tab 06/22/19 Comments: Godwin Evans D.O. [facility] #[id number]
[2019-06-22] MEDS: ACETAMINOPHEN W/COD #3 TAB 1 EA TAB PO ONE (17:08)
[2019-06-22] MEDS: IBUPROFEN 400 MG TAB PO ONE (17:10)
[2019-06-22 17:24] VITALS: TEMP 99.4
--- NOTE | 2019-06-22 17:42 | RAD ---
EXAM: Ankle,Left 3 Views CLINICAL INDICATION: 24-year-old female with inversion injury. TECHNIQUE: Three views LEFT ankle were obtained in AP, lateral and oblique projections. COMPARISON: None. FINDINGS: Minimally displaced fracture of the inferior aspect of the lateral malleolus. Soft tissue swelling of the lateral malleolus. Tibiotalar joint effusion also noted. The joint spaces are preserved. No soft tissue abnormalities are seen. IMPRESSION: Minimally displaced fracture of the inferior lateral malleolus with soft tissue swelling. Electronically signed by: Caroline Rios MD 06/22/2019 5:41 PM [facility]
[2019-06-22 18:08] VITALS: BP 104/63; O2SAT 98
== END 2019-06-22 18:07 | disposition home or self-care (01) ==
LOC: ER 16:47
DX: S82.65XA Nondisplaced fracture of lateral malleolus of left fibula, initial encounter for closed fracture (principal); G40.909 Epilepsy, unspecified, not intractable, without status epilepticus; Z87.891 Personal history of nicotine dependence; Z79.899 Other long term (current) drug therapy; X50.9XXA Other and unspecified overexertion or strenuous movements or postures, initial encounter; Y92.9 Unspecified place or not applicable

== ENCOUNTER → 2019-06-30 | Outpatient (CLI) | payer OTHER ==
--- NOTE | 2019-06-30 10:48 | RAD ---
EXAM DESCRIPTION: Ankle,Left 3 Views CLINICAL HISTORY: 24 years Female, PAIN IN LEFT ANKLE AND JOINTS OF LEFT FOOT COMPARISON: Left ankle radiographs 07/10/2019 TECHNIQUE: 3 view radiographs of the left ankle. IMPRESSION: Unchanged nondisplaced fracture of the lateral malleolus. No sclerosis or surrounding callus formation in the short interval time from prior study. No new acute fracture. Decreased size of a residual small patellar joint effusion present posteriorly. Intact talar dome. Interval external casting which obscures the details of the underlying soft tissues. Electronically signed by: Earnest Farris MD 06/30/2019 10:46 AM [facility]
== END ==
LOC: RAD 07:45
PROVIDERS: ATTEND Orthopaedic Surgery
DX: S82.65XD Nondisplaced fracture of lateral malleolus of left fibula, subsequent encounter for closed fracture with routine healing (principal); M25.462 Effusion, left knee

== ENCOUNTER 2019-10-30 12:58 | Emergency (ER) | payer OTHER ==
[2019-10-30] MEDS ORDERED: SODIUM CHLORIDE 0.9% 1000ML 1,000 ML IVS ONE (13:14)
--- NOTE | 2019-10-30 13:34 | ED.PDOC ---
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 Onset 3 days ago and worsening, reports now as constant 8/10 severity sharp pain around the area to the right chest wall w/o radiation, worse with palpation, nothing taken for relief. Reports also some moderate swelling around the area. Also reports fevers for past 3 days as well, was running low 100s, today Tmax 100.9 F at home. Also reports +nausea w/o emesis, decreased appetite, mild dyspnea, palpitations (frequent at baseline given her POTS). Denies any sore throat, cough, abd pain, n/v/d. States medi-port was placed in 03/[address] Sherrie tucker in [place]. She was getting twice weekly NS boluses until she lost her insurance. Last infusion was 02/2019. She is concerned the port is obstructed and would it to be checked. Allergies/Adverse Reactions: Allergies NO KNOWN ALLERGY Allergy (Verified 10/30/19 13:20) Home Medications: Ambulatory Orders Adderall Xr 30 mg 30 mg PO DAILY 03/24/18 Amitriptyline HCl [Amitriptyline Hydrochlori] 50 mg PO BEDTIME 03/24/18 Estazolam 2 mg PO BEDTIME 03/24/18 Gabapentin 300 mg PO TID 01/04/19 Lamotrigine [Lamictal] 50 mg PO DAILY 01/04/19 Levetiracetam [Keppra] 500 mg PO BID 01/04/19 Ciprofloxacin [Cipro] 500 mg PO BID #10 tab 02/06/19 Acetaminophen W/ Codeine [Tylenol W/ CODEINE #3] 1 ea PO Q8HR PRN #10 06/22/19 Meloxicam [Mobic] 15 mg PO DAILY #15 tab 06/22/19 Amoxicillin 500 mg PO BID 10 Days #20 cap 10/30/19 Review of Systems - Review of Systems Review of Systems: 10/30/19 13:34 as per HPI All other Systems: Reviewed and Negative Past Medical History (General) - Patient Medical History Hx Seizures: Yes - Epilepsy Hx Stroke: No Hx Dementia: No Hx Asthma: No Hx of COPD: No Hx Cardiac Disorders: No Hx Congestive Heart Failure: No Hx Pacemaker: No Hx Hypertension: No Hx Thyroid Disease: No Hx Diabetes: No Hx Gastroesophageal Reflux: No Hx Renal Disease: No Hx Cancer: No Hx of HIV: No Hx Hepatitis C: No Hx MRSA: No - Vaccination History Hx Tetanus, Diphtheria Vaccination: Yes Hx Influenza Vaccination: Yes Hx Pneumococcal Vaccination: No - Social History Hx Tobacco Use: Yes Hx Chewing Tobacco Use: No Hx Alcohol Use: No Hx Substance Use: No Hx Substance Use Treatment: No Hx Depression: No Hx Physical Abuse: No Hx Emotional Abuse: No Hx Suspected Abuse: No - Female History Hx Last Menstrual Period: 09/29/13 Patient : No - Hyst Expected Date of Delivery:: 07/06/14 Hx Gestational Age: 19 Family Medical History - Family History Mother Family History: Unknown Age (years): 51 Hx Family Hypertension: Yes - gf Hx Family Diabetes: Yes Hx Family Cancer: Yes Father Living Status: Still Living Hx Cardiac Disease: Yes - father had [place] Hx Family Diabetes: Yes Hx Family Cancer: Yes Physical Exam - Physical Exam General Appearance: Alert, Comfortable, No apparent distress Eye Exam: bilateral normal Ears, Nose, Throat: hearing grossly normal, normal ENT inspection, normal pharynx Neck: non-tender, full range of motion, supple, normal inspection Respiratory: lungs clear, normal breath sounds, no respiratory distress, no accessory muscle use, other - Right chest wall with medi-port in place under skin. No appreciable redness, warmth, or swelling. Moderate ttp around the site. No masses or abscesses appreciated. Cardiovascular/Chest: normal peripheral pulses, no edema, no gallop, no JVD, no murmur, tachycardia Peripheral Pulses: radial,right: 2+, radial,left: 2+ Gastrointestinal/Abdominal: non tender, soft, no organomegaly Back Exam: normal inspection, no CVA tenderness Extremity: normal range of motion, non-tender, normal inspection, no pedal edema, no calf tenderness, normal capillary refill Neurologic: glost placer II-XII nml as tested, no motor/sensory deficits, alert, normal mood/affect, oriented x 3 Skin Exam: normal color, warm/dry Lymphatic: no adenopathy Progress - Progress Progress: 10/30/19 13:36 Right chest wall pain -around medi-port site -consider medi-port site infection, abscess, cellulitis, bacteremia, sepsis, PNA, flu, strep, UTI -obtain lactate, blood cx's, labs, CXR, EKG -attempt to access site and see if it flushes -1 L NS bolus 10/30/19 13:53 -RN reports medi-port flushes easily and draws blood easily 10/30/19 14:41 -Pt remains stable, tachycardia resolved with 1 L NS bolus, remainder of vitals wnl, still afebrile in ED -Labs reveal Strep+, flu neg. WBC 4,400 without left shift or bands, lactate 1.3. Remainder of labs pretty unremarkable. -CXR pretty unremarkable -Discussed findings and dx of strep throat. Her now states he has had sore throat too, which may be where she caught it. Will treat with amoxicillin 500 mg BID x10 days. I strongly doubt any mediport site infection or bloodborne infection. Will follow blood cx's. Strict ED return warnings advised. -Discussed with Dr. Balderas who states pt may f/u in the surgery clinic if still having pain or any other issues to the site. Agrees with treatment plan. -dc to home in good condition Mark Zendejas MD Billing #[id number] 10/30/19 13:13 IV Care:Saline Lock per Protoc QSHIFT Telemetry .ONCE Sodium Chloride 0.9% (Flush) [Saline Flush Syringe] 10 ml IV PRN PRN 10/30/19 13:14 URINALYSIS Stat 10/30/19 13:15 CATHETER TIP CULTURE Stat EKG STAT 10/30/19 14:09 BLOOD CULTURE Stat 10/31/19 09:00 Pulse Ox Daily Laboratory Results - last 24 hr 10/30/19 10/30/19 10/30/19 13:25 13:25 13:25 WBC 4.4 L RBC 4.48 Hgb 13.5 Hct 39.8 MCV 88.6 MCH 30.0 MCHC 33.9 RDW 12.8 Plt Count 192 MPV 9.0 Absolute Neuts (auto) 2.00 Absolute Lymphs (auto) 1.80 Absolute Monos (auto) 0.40 Absolute Eos (auto) 0.10 Absolute Basos (auto) 0.00 Neutrophils % 45.5 Lymphocytes % 41.9 Monocytes % 8.9 Eosinophils % 2.7 Basophils % 1.0 Sodium 138 Potassium 3.7 Chloride 106 Carbon Dioxide 25 Anion Gap 10.7 L BUN 10 Creatinine 0.78 BUN/Creatinine Ratio 12.8 Random Glucose 84 Serum Osmolality 273.9 L Lactic Acid 1.3 Calcium 9.6 Total Bilirubin 0.5 AST 15 ALT 13 Alkaline Phosphatase 60 B-Natriuretic Peptide < 5.0 Serum Total Protein 7.6 Albumin 4.4 Globulin 3.2 Albumin/Globulin Ratio 1.4 Group A Strep Rapid 10/30/19 13:30 WBC RBC Hgb Hct MCV MCH MCHC RDW Plt Count MPV Absolute Neuts (auto) Absolute Lymphs (auto) Absolute Monos (auto) Absolute Eos (auto) Absolute Basos (auto) Neutrophils % Lymphocytes % Monocytes % Eosinophils % Basophils % Sodium Potassium Chloride Carbon Dioxide Anion Gap BUN Creatinine BUN/Creatinine Ratio Random Glucose Serum Osmolality Lactic Acid Calcium Total Bilirubin AST ALT Alkaline Phosphatase B-Natriuretic Peptide Serum Total Protein Albumin Globulin Albumin/Globulin Ratio Group A Strep Rapid Positive - EKG/XRAY/CT EKG: Sinus, Tachy - HR 110, no ST elevs or q waves, axis & intervals normal, no prior EKG for comparison XRAY: chest - no acute processes per my read. Right-sided chest wall mediport noted in good position with tip projecting into SVC Departure - Departure Clinical Impression: Strep pharyngitis Time of Disposition: 14:38 Disposition: Discharge to Home or Self Care Condition: Good Departure Forms: ED Discharge - Pt. Copy, Patient Portal Self Enrollment Instructions: Sore Throat, Adult (DC) Diet: resume usual diet Referrals: Luis Alberto Palmer MD [Primary Care Provider] - 1-2 Weeks Prescriptions: Amoxicillin 500 mg PO BID 10 Days #20 cap Home Medications: Ambulatory Orders Adderall Xr 30 mg 30 mg PO DAILY 03/24/18 Amitriptyline HCl [Amitriptyline Hydrochlori] 50 mg PO BEDTIME 03/24/18 Estazolam 2 mg PO BEDTIME 03/24/18 Gabapentin 300 mg PO TID 01/04/19 Lamotrigine [Lamictal] 50 mg PO DAILY 01/04/19 Levetiracetam [Keppra] 500 mg PO BID 01/04/19 Ciprofloxacin [Cipro] 500 mg PO BID #10 tab 02/06/19 Acetaminophen W/ Codeine [Tylenol W/ CODEINE #3] 1 ea PO Q8HR PRN #10 06/22/19 Meloxicam [Mobic] 15 mg PO DAILY #15 tab 06/22/19 Amoxicillin 500 mg PO BID 10 Days #20 cap 10/30/19 Additional Instructions: Take the antibiotics as directed and finish the full course. Continue taking ibuprofen 600 mg every 6 hours and Tylenol 650 mg every 6 hours as needed for pain or fevers. Return if symptoms worsen or if you develop worsening redness, warmth, swelling, or pain to mediport site or shortness of breath. Follow up with your PCP and with Dr. Balderas's clinic in the next 1-2 weeks or sooner as needed.
[2019-10-30] MEDS: SODIUM CHLORIDE 0.9% (FLUSH) 10 ML SYG IV PRN ×2 (13:42→14:45)
--- NOTE | 2019-10-30 14:11 | RAD ---
EXAM DESCRIPTION: Chest,2 Views CLINICAL HISTORY: swelling and pain around medi-port site, +fevers COMPARISON: March 25, 2018. FINDINGS: 2 views of the chest. Right-sided chest wall Mediport is present with tip projecting in the mid superior vena cava. No consolidation, effusion or pneumothorax is demonstrated. Heart and mediastinum are normal in appearance. Right upper quadrant surgical clips are present. IMPRESSION: No acute process. Electronically signed by: Dileep Silva MD 10/30/2019 2:09 PM CDT
[2019-10-30 14:13] VITALS: O2SAT 98
[2019-10-30] MEDS ORDERED: AMOXICILLIN 500 MG CAP PO ONE (14:38)
[2019-10-30 14:55] VITALS: BP 108/75; TEMP 99.4
== END 2019-10-30 14:55 | disposition home or self-care (01) ==
LOC: ER 12:58
DX: J02.0 Streptococcal pharyngitis (principal); R00.0 Tachycardia, unspecified; Q79.60 Ehlers-Danlos syndrome, unspecified; G40.909 Epilepsy, unspecified, not intractable, without status epilepticus; R50.9 Fever, unspecified; R11.0 Nausea; R07.89 Other chest pain; Z87.891 Personal history of nicotine dependence; Z79.899 Other long term (current) drug therapy

== ENCOUNTER → 2019-11-17 | Outpatient (CLI) | payer OTHER ==
--- NOTE | 2019-11-17 14:29 | US ---
EXAM DESCRIPTION: Breast,Right: Ultrasound. CLINICAL HISTORY: 24 yearsFemaleBREAST MASS retroareolar right nipple. COMPARISON: Ultrasound right breast December. TECHNIQUE: Transcutaneous scanning of the right breast utilizing cordero-scale and Doppler modes. Scanning performed by the analytical data miner and Dr. Guy. FINDINGS: Again noted is a small hypoechoic nodular object abutting the nipple and measuring 2.0 x 1.8 mm. Compared to the prior study, appearance is more hypoechoic and more acoustic shadowing compared to posterior acoustic enhancement on the prior study. Size is stable. Not Vascular. Benign lesion is still most likely. IMPRESSION: BI-RADS CATEGORY: 3 - PROBABLY BENIGN. RECOMMENDATIONS: FOLLOW-UP: Short interval (6-month) follow-up directed right breast ultrasound.. Written communication explaining the IMPRESSION and FOLLOW-UP will be mailed to the patient and referring care provider. Electronically signed by: Danny Guy MD 11/17/2019 2:28 PM CDT
--- NOTE | 2019-11-17 15:10 | RAD ---
EXAM DESCRIPTION: Abdomen Flat Upright: CR/DR/XR. CLINICAL HISTORY: RT UQ ABD PAIN COMPARISON: Abdominal radiographs November 2010. TECHNIQUE: 2 views upright AP chest and abdomen and supine AP abdomen and pelvis. FINDINGS: Thank you material proximal and distal colon. Slightly increased gas in the ascending colon. No free air under the diaphragms. No abnormalities in the lung bases. Surgical clips right upper quadrant. Injection port for VAD right mid chest. Distal tip of the age not seen. Bilateral breast implants. Lumbar levoscoliosis. IMPRESSION: No free intraperitoneal air. No bowel obstruction. Mild proximal constipation. Electronically signed by: Danny Guy MD 11/17/2019 3:08 PM CDT
== END ==
LOC: US 09:06
PROVIDERS: ATTEND Surgery
DX: N63.12 Unspecified lump in the right breast, upper inner quadrant (principal); R10.31 Right lower quadrant pain